=== PATIENT | male | born 1980 | race Caucasian/White ===

== ENCOUNTER 2019-06-08 09:21 | Emergency (ER) | payer OTHER, SELFPAY ==
[2019-06-08 09:28] VITALS: BP 121/80; PULSE 92; RESP 20; TEMP 37; O2SAT 98
--- NOTE | 2019-06-08 09:31 | ED.GENADUL_ITS ---
Discharge Plan Disposition Patient Disposition: HOME Condition: Improving Discharge Details Chief Complaint: Fever Clinical Impression: Fever, Tick bite Primary Care Provider: Pete Carrillo ED Provider: Namrata Allen Home Meds and New Rx's Prescriptions: New doxycycline hyclate 100 mg capsule 100 mg PO BID Qty: 41 RF: 0 ondansetron 4 mg tablet,disintegrating 4 mg PO Q6H PRN (Reason: nausea and vomiting) Qty: 10 RF: 0 Continued amitriptyline 50 MG tablet 50 mg PO HS RF: 0 omeprazole 20 MG capsule,delayed release(DR/EC) 20 mg PO DAILY RF: 0 Discharge Instructions Instructions: Tick Bite (ED), Fever in Adults (ED) Additional Instructions: Continue to encourage hydration. He may use Zofran as prescribed for nausea recurs. Please take the doxycycline as prescribed. I am concerned that you have a tickborne illness, particularly Lyme disease. Would like you to follow- up with your primary care this week for reevaluation. Please seek care urgently once again with any neck pain, rash, increased headache, fevers or other new/worsening symptoms. Stand Alone Forms: Work Release Referrals: Pete Carrillo [Primary Care Provider] - Discharge Data Discharge Date/Time-TO BE ENTERED AT DEPARTURE: 06/08/19 12:19 Medical Decision Making Patient is a 38-year-old female, coming by , with chief complaint of fever, body aches and general malaise. Reports that symptoms began 1 week ago. He was seen by his primary care 2 days ago at which time there was concern for influenza. Patient subsequent influenza swab which is negative. Patient was prescribed azithromycin but has not begun this, was not called into the pharmacy. Patient denies any sinus pain, ear pain, sore throat, cough. Endorses nausea and vomiting x1. No diarrhea, denies any dysuria. No abdominal pain. Denies any rash. Is endorsing a headache On exam, patient appears feels unwell. He is pale and appears fatigued. No nuchal rigidity. No rash. Lungs are clear. Normal exam otherwise. Labs significant for normal white count. ESR is elevated to 84. Sodium slightly low 134. AST 41, ALT 70. Patient denies any alcohol intake. CRP is 15.88. Albumin slightly low at 3.2. Urine is normal. Discussed this with the patient. On further questioning, patient was exposed to tick bite and his dog was recently diagnosed with Lyme disease. There is diffuse body aches, I am concerned that this may be a tickborne illness. There is no nuchal rigidity, does not appear toxic. Viral meningitis or encephalitis is on my differential, but feel that this is less likely. We did discuss LP and he decided to hold off at this time and instead begin empiric treatment for Lyme disease with doxycycline. I have asked that he follow-up with his primary care this week and strict return precautions was given. Discussed this plan in depth with the patient and his . He is feeling much improved after Zofran, fluids. Reports that his headache is already much improved. Encourage hydration. Will place on doxycycline x21 days. Advise follow-up with primary care this week. He will return with any new or worsening symptoms. All his questions and concerns were addressed and he is in agreement this plan. HPI General Mode of arrival: ambulatory . Date/Time Provider Initiated Documentation: 06/08/19 09:31 . Limitations to Documentation: no limitations . Information obtained by: patient, family () and RN notes reviewed . HPI Narrative: Patient is a 38-year-old male presents today with chief complaint feeling unwell. Generalized malaise, fever, headache, body aches. No URI symptoms. Symptoms began approximately 1 week ago. Is currently endorsing nausea. Vomited x1 this morning. Did not receive his influenza vaccine. No recent travel. No recent antibiotics. Related Data Home Medications Medication Instructions Recorded Confirmed amitriptyline 50 mg PO HS 03/31/17 06/08/19 omeprazole 20 mg PO DAILY 03/31/17 06/08/19 doxycycline hyclate 100 mg PO BID #41 cap 06/08/19 ondansetron 4 mg PO Q6H PRN #10 tab 06/08/19 Previous Rx's Medication Instructions Recorded doxycycline hyclate 100 mg PO BID #41 cap 06/08/19 ondansetron 4 mg PO Q6H PRN #10 tab 06/08/19 Allergies Allergy/AdvReac Type Severity Reaction Status Date / Time fish derived Allergy Other (See Unverified 07/12/17 10:05 Comment) General Stated Complaint: Fever DANETTE: 3 Review of Systems Constitutional Constitutional: Reports as per HPI, Reports chills, Reports fatigue, Reports fever(s), Reports headache(s), Reports malaise, Reports night sweats, Reports poor appetite, Reports weakness and Denies weight loss Eyes Eyes: Reports as per HPI, Denies eye discharge and Denies irritation ENT Ears, Nose, Mouth, and Throat: Reports as per HPI and Reports headache(s) Cardiovascular Cardiovascular: Reports as per HPI, Denies chest pain, Denies palpitations and Denies dyspnea Respiratory Respiratory: Reports as per HPI, Denies cough, Denies hemoptysis, Denies dyspnea, Denies stridor and Denies wheezing Gastrointestinal Gastrointestinal: Reports as per HPI, Denies abdominal pain, Denies change in bowel habits, Denies change in stool character, Denies constipation, Denies cramping, Reports nausea and Reports vomiting Genitourinary Genitourinary: Reports as per HPI, Denies genital pain, Denies dysuria, Denies flank pain, Denies testicular pain, Denies urinary frequency and Denies urinary urgency Integumentary/Breasts Skin/Breast: Reports as per HPI and Denies rash Neurologic Neurologic: Reports as per HPI, Reports headache(s) and Reports weakness Endocrine Endocrine: Reports fatigue and Denies palpitations Allergic/Immunologic Allergic/Immunologic: Denies wheezing [facility] Medical History Migraines (Chronic) Surgical History Hx of appendectomy (Chronic) Social History Smoking/Tobacco Use Status: Current every day Alcohol Intake: never Drug use: Occasionally Substance use type: marijuana Do you feel safe at home: Yes Do you feel safe in your relationship?: Yes Exam Const General: cooperative, comfortable, no acute distress, well developed, well groomed and ill appearing acutely (appears pale and fatigued, does not appear toxic) Nutritional Appearance: average body habitus and well nourished Orientation: alert and awake [facility] Head: normal to inspection, normocephalic and atraumatic Ears: hearing grossly normal bilaterally, external ears normal and TM's normal bilaterally General nose exam: external nose normal and nares normal Face and sinus: normal facial exam, sinuses nontender and face symmetric Mouth: oral mucosae normal, lip normal, tongue normal, oropharynx normal and moist mucous membranes Teeth and gingiva: dentition normal Throat: posterior oropharynx normal, tonsils normal and uvula midline Eyes General: appearance normal, both eyes and all related structures Neck Neck: normal visual inspection, full ROM, no lymphadenopathy and no meningeal signs Resp Effort & Inspection: normal respiratory effort, able to speak in complete sentences and no respiratory distress Auscultation: clear to auscultation bilaterally, no rales, no rhonchi and no wheezes Cardio Rate: regular rate Rhythm: regular rhythm Heart Sounds: S1 normal and S2 normal GI Inspection: normal to inspection, non-distended and no obesity Palpation: soft, no hepatosplenomegaly, no guarding, not rigid and nontender Percussion: normal to percussion Auscultation: normal bowel sounds Back/Spine/Pelvis Back: no CVA tenderness Thoracic/Lumbar Spine: thoracic and lumbar spine normal to inspection Skin General skin exam: no rashes or lesions noted Neuro General: alert and awake Cognition: normal cognition Speech: speech normal Gait: normal gait Extrem General: normal to inspection, no pedal edema, no calf tenderness and normal gait Psych Appearance: grossly normal and well kempt Mental Status: mental status grossly normal Speech and Movement: speech and movement normal Course Vital Signs Vital signs: Vital Signs Temperature 37.0 C 06/08/19 09:28 Pulse 92 H 06/08/19 09:28 Respiratory Rate 20 06/08/19 09:28 Blood Pressure 121/80 06/08/19 09:28 Pulse Oximetry 98 06/08/19 09:28 Temperature 37.0 C 06/08/19 09:28 Pulse 92 H 06/08/19 09:28 Respiratory Rate 20 06/08/19 09:28 Blood Pressure 121/80 06/08/19 09:28 Blood Pressure Position Sitting 06/08/19 09:28 Pulse Oximetry 98 06/08/19 09:28 Oxygen Delivery Method Room Air 06/08/19 09:28 Oxygen Flow Rate 0 06/08/19 09:28 Pain Level 9 06/08/19 09:28
[2019-06-08 10:10] LABS: Bilirubin Negative (Negative); Blood Trace-intact (Negative); Clarity Clear (Clear); Glucose Negative (Negative); Ketones Trace mg/dL (Negative); Leukocyte Esterase Negative (Negative); Nitrite Negative (Negative); Specific Gravity <= 1.005 (1.005-1.025); Urobilinogen 0.2 EU/dL (Up TO 0.2); pH 6.5 (5-8)
[2019-06-08] MEDS: Ondansetron O.D.T. 4 MG TABEF PO (10:12)
[2019-06-08 10:24] LABS: Bacteria Negative HPF (Negative); C & S Indicated? No; Casts Negative LPF (Negative); Crystals Negative HPF (Negative); Epithelial Cells Negative HPF (Negative); Mucus Trace (Negative); RBC 0-2 HPF (0-2); WBC 0-2 HPF (0-5)
[2019-06-08] MEDS: Normal Saline 1,000 ML 1000 ML IV (10:35)
[2019-06-08 10:43] LABS: Abs Immature Grans 0.01 k/cumm (0.0-0.09); Absolute Basophil Count 0.02 k/cumm (0.0-0.2); Absolute Lymphocyte Count 1.23 k/cumm (1.2-3.4); Absolute Neutrophil Count 4.82 k/cumm (1.2-6.7); Basophils % 0.3; HCT 39.5 % (40.0-50.0); HGB 13.7 g/dL (13.5-17.5); Immature Grans % 0.1; Lymphocytes % 18.4; Mean Corp. HGB Concentration 34.7 g/dL (32.0-36.0); Mean Corpuscular Hemoglobin 31.6 pg (27.0-33.0); Mean Corpuscular Volume 91.2 fL (80-95); Mean Platelet Volume 8.7 fL (8.0-11.0); Neutrophils % 72.2; Platelet Count 219 x1000/uL (130-400); RBC 4.33 m/cumm (4.50-6.00); RBC Distribution Width 12.3 % (11.8-14.1); White Blood Cell Count 6.68 k/cumm (4.4-10.8)
[2019-06-08 10:57] LABS: C-Reactive Protein 15.88 mg/dL (0.0-0.3)
[2019-06-08 10:59] LABS: ALT 70 U/L (16-63); AST 41 U/L (15-37); Albumin 3.2 g/dL (3.4-5.0); Alkaline Phosphatase 93 U/L (46-116); Anion Gap 7.4 mmol/L (3-11); BUN 6 mg/dL (7-18); Bilirubin, Total 0.4 mg/dL (0.2-1.0); CO2 27.6 mmol/L (21.0-32.0); CREATININE 0.91 mg/dL (0.70-1.30); Calcium 8.9 mg/dL (8.5-10.1); Chloride 99 mmol/L (98-107); Glucose 100 mg/dL (70-100); Potassium 4.1 mmol/L (3.5-5.1); Sodium 134 mmol/L (136-145); Total Protein 7.8 g/dL (6.4-8.2)
[2019-06-08] MEDS: Lactated Ringers 1,000 ML 1000 ML IV (11:03)
[2019-06-08 11:20] LABS: ESR 84 mm/hr (0-15)
[2019-06-08] MEDS: Acetaminophen 500 MG TAB 1000 MG PO (11:50)
[2019-06-08] MEDS: Ibuprofen 600 MG TAB PO (11:50)
[2019-06-08 11:55] VITALS: BP 116/76; PULSE 86; RESP 15; TEMP 36.6; O2SAT 96
[2019-06-08 12:12] VITALS: BP 116/72; PULSE 83; RESP 12; TEMP 36.6; O2SAT 95
[2019-06-08] MEDS: Doxycycline Hyclate 100 MG CAP PO (12:12)
[2019-06-10 11:43] LABS: Lyme Ab w Rflx to Lyme Confirm Negative (Negative)
[2019-06-11 17:31] LABS: Anaplasma phagocytophilum Negative (Negative); B. miyamotoi PCR Negative (Negative); Babesia divergens/MO-1 Negative (Negative); Babesia duncani Negative (Negative); Babesia microti Negative (Negative); Ehrlichia chaffeensis Negative (Negative); Ehrlichia ewingii/canis Negative (Negative); Ehrlichia muris eauclairensis Negative (Negative)
== END 2019-06-08 12:19 | disposition home or self-care (01) ==
PROVIDERS: Emergency Provider Physician Assistant; PCP Family Medicine
DX: R50.9 Fever, unspecified (principal); Z11.2 Encounter for screening for other bacterial diseases; W57.XXXA Bitten or stung by nonvenomous insect and other nonvenomous arthropods, initial encounter
CPT/HCPCS: 36415; 80053; 85652; 87449; 87631; 87798; 96360; 99283; 81003; 81015; 85025; 86140; 86618

== ENCOUNTER 2019-06-23 19:12 | Outpatient (REF) | payer OTHER, SELFPAY ==
[2019-06-23 19:54] LABS: ALT 33 U/L (16-63); AST 13 U/L (15-37); Alkaline Phosphatase 76 U/L (46-116); Bilirubin, Direct 0.07 mg/dL (0.00-0.20); Bilirubin, Total 0.3 mg/dL (0.2-1.0); C-Reactive Protein 0.26 mg/dL (0.0-0.3); Total Protein 7.7 g/dL (6.4-8.2)
[2019-06-25 11:49] LABS: Lyme Ab w Rflx to Lyme Confirm Negative (Negative)
[2019-06-26 19:59] LABS: Anaplasma phagocytophilum Negative (Negative); B. miyamotoi PCR Negative (Negative); Babesia divergens/MO-1 Negative (Negative); Babesia duncani Negative (Negative); Babesia microti Negative (Negative); Ehrlichia chaffeensis Negative (Negative); Ehrlichia ewingii/canis Negative (Negative); Ehrlichia muris eauclairensis Negative (Negative)
== END 2019-06-23 19:32 ==
LOC: NCHCN 19:12
PROVIDERS: PCP Family Medicine; Visit Provider Family Medicine
DX: R50.9 Fever, unspecified (principal); R53.83 Other fatigue; R74.0 Nonspecific elevation of levels of transaminase and lactic acid dehydrogenase [LDH]
CPT/HCPCS: 80076; 87798; 84443; 86140; 86618

== ENCOUNTER 2020-01-21 13:21 | Emergency (ER) | payer OTHER, SELFPAY ==
[2020-01-21 13:24] VITALS: BP 126/83; PULSE 84; RESP 16; TEMP 36.6; O2SAT 99
[2020-01-21 13:28] VITALS: RESP 16
--- NOTE | 2020-01-21 13:45 | DI.CT_ITS ---
EXAM: CT CHEST PE CTA CLINICAL HISTORY: R/O PE vs Aneurysm. TECHNIQUE: Imaging Protocol: Axial CT angiography was performed with multi-slice acquisition and mu lti-planar and/or 3D reconstructions. CONTRAST MATERIAL: Intravenous: Omnipaque 350 Contrast volume:99 mL COMPARISON: No exams were available for comparison FINDINGS: Pulmonary Arteries: No evidence of filling defect to suggest pulmonary emboli. Tracheobronchial tree: Patent where visualized. Mediastinum and Shahida: No dominant adenopathy or fluid collection. Pulmonary parenchyma: No consolidation or dominant measurable mass. No architectural distortion. Pleura: No effusion or pneumothorax. Heart: The heart is not dilated. No coronary artery calcifications are seen. No pericardial effusion or evidence of right heart strain. Aorta: Thoracic aorta non-dilated. Dissection. Upper abdomen: Unremarkable. Bones: Degenerative changes are seen in the thoracic spine. No acute abnormality. IMPRESSION: No evidence of pulmonary embolism, thoracic aortic dissection or aneurysm. These findings were discussed with the emergency department on the date of the examination. RADIATION DOSE DELIVERED: Total DLP DATA REPOSITORY: All CT scans at this facility are submitted to the National Radiology Data Registry (NRDR) Dose Index Registry (DIR) with the [employer] (A[employer]). RADIATION OPTIMIZATION: All CT scans at this facility use at least one of these dose optimization te chniques: automated exposure control; mA and/or kV adjustment per patient size (includes targeted exa ms where dose is matched to clinical indication); or iterative reconstruction.
[2020-01-21 13:47] LABS: Abs Immature Grans 0.02 k/cumm (0.0-0.09); Absolute Basophil Count 0.01 k/cumm (0.0-0.2); Absolute Monocyte Count 0.86 k/cumm (0.11-0.7); Absolute Neutrophil Count 6.35 k/cumm (1.2-6.7); Basophils % 0.1; HGB 14.9 g/dL (13.5-17.5); Immature Grans % 0.2 %; Lymphocytes % 23.1; Mean Corp. HGB Concentration 34.7 g/dL (32.0-36.0); Mean Corpuscular Hemoglobin 32.7 pg (27.0-33.0); Mean Corpuscular Volume 94.5 fL (80-95); Neutrophils % 66.6; Platelet Count 293 x1000/uL (130-400); RBC 4.55 m/cumm (4.50-6.00); RBC Distribution Width 12.7 % (11.8-14.1); White Blood Cell Count 9.54 k/cumm (4.4-10.8)
--- NOTE | 2020-01-21 13:52 | ED.GENADUL_ITS ---
Discharge Plan Disposition Patient Disposition: HOME Condition: Stable Discharge Details Chief Complaint: Chest Pain Clinical Impression: Chest pain Primary Care Provider: Pete Carrillo ED Provider: Aris Navarro Home Meds and New Rx's Prescriptions: Continued amitriptyline 50 MG tablet 50 mg PO HS RF: 0 omeprazole 20 MG capsule,delayed release(DR/EC) 20 mg PO DAILY RF: 0 Discharge Instructions Instructions: Chest Pain (ED) Additional Instructions: Work-up in the ER has been unremarkable, your pain is now less than a 1 out of 1 0. [id number] anti-inflammatory medication as directed. Please watch for new or worsening symptoms and return to the ER for any concerns. I do recommend reaching out to your primary care provider tomorrow for reevaluation in the next 3-5 days. As we discussed outpatient referral to cardiology for outpatient cardiac work-up and/or general surgery for potential endoscopy may be indicated if symptoms persist. Discharge Data Discharge Date/Time-TO BE ENTERED AT DEPARTURE: 01/21/20 17:33 Medical Decision Making <Aaliyah Camilo - Last Filed: 01/22/20 10:31> 39-year-old male presents to the ED chief complaint upper back pain which then turned into midsternal anterior chest pain which began at 2:00 in the morning radiating into his left arm. Associated with pain with deep breathing. Patient is a smoker. Patient does endorse daily marijuana use. Denies productive cough, no swelling in his lower extremities, denies nausea or vomiting, fever or chills, hematochezia. Denies alcohol use. Upon arrival he does rate his pain 5 out of 10. Pain is not reproducible with palpation. 1328: EKG was reviewed by Eneida Kennedy MD ER attending, shows normal sinus rhythm rate of [address] elevation which could represent repolarization variant in leads V2 and V3, no ectopy no STEMI. There is no old EKG available for review at this time. Cardiac work-up ordered including CBC, CMP, troponin serial troponin at 3 hours, cardiac monitoring, CT PE CTA to rule out PE versus aneurysm. At this time PE is less likely, no tachycardia, no hemoptysis, no lower extremity swelling. Differential diagnosis includes but not limited to angina, AAA, PE, costochondritis, URI, pneumonia, musculoskeletal. EXAM: CT CHEST PE CTA CLINICAL HISTORY: R/O PE vs Aneurysm. TECHNIQUE: Imaging Protocol: Axial CT angiography was performed with multi- slice acquisition and multi-planar and/or 3D reconstructions. CONTRAST MATERIAL: Intravenous: Omnipaque 350 Contrast volume:99 mL COMPARISON: No exams were available for comparison FINDINGS: Pulmonary Arteries: No evidence of filling defect to suggest pulmonary emboli. Tracheobronchial tree: Patent where visualized. Mediastinum and Shahida: No dominant adenopathy or fluid collection. Pulmonary parenchyma: No consolidation or dominant measurable mass. No architectural distortion. Pleura: No effusion or pneumothorax. Heart: The heart is not dilated. No coronary artery calcifications are seen. No pericardial effusion or evidence of right heart strain. Aorta: Thoracic aorta non-dilated. Dissection. Upper abdomen: Unremarkable. Bones: Degenerative changes are seen in the thoracic spine. No acute abnormal ity. IMPRESSION: No evidence of pulmonary embolism, thoracic aortic dissection or aneurysm. These findings were discussed with the emergency department on the date of the examination. 1530: Patient returned from CT reports increased pain with laying flat, pain got worse with raising arms over the head and laying flat. Reports pain 9 out of 10. Sublingual nitroglycerin x3 ordered as needed pain. 1549: medical staff coordinator reports no change in patient's pain after 3 sublingual nitros. 15 mg Toradol IV push ordered. At this time repeat troponin and repeat EKG is pending. Care is to be handed off to oncoming provider KIM Woods pending second repeat troponin and EKG and patient disposition. Discussed patient details in case with Aris. <KIM Broussard - Last Filed: 01/21/20 17:31> This 39-year-old gentleman was signed out to me by GUALBERTO Camilo at shift change at 1600. He developed back and chest pain late last night early this morning. Work-up thus far has been unremarkable including troponin, EKG, chest CT. He was given 3 nitro without any resolution of his symptoms. Just prior to my shift starting he was given Toradol. His pain earlier in his visit was a 5 out of 10. Upon my evaluation in room 8, he reports his pain is significantly improved with Toradol, now barely a 1 out of 10. He denies any shortness of breath. He appears well, nontoxic and in no acute distress. Head normocephalic, heart regular rate and rhythm, rate in the 70s. Lungs clear to auscultation, speaking in full sentences. O2 sat 100% on room air. Abdomen soft, nontender. No pedal edema. Patient is agreeable to awaiting his repeat EKG and troponin. Repeat troponin is less than 0.05. Repeat EKG performed at 1630 reviewed and interpreted with Dr. Kennedy. Sinus rhythm, ventricular rate of 69. Early repolarization, no STEMI. No dynamic changes when compared to earlier EKG. Upon my final evaluation, patient is resting comfortably and reports his pain is not even a true pain any longer and more of what he describes as a irritation. Irritation is less than 1 out of 10. Patient has no additional questions or concerns and is comfortable discharge at this time. He will use [id number] anti-inflammatory medication as directed, recheck to his primary care provider tomorrow for prompt outpatient reevaluation, and return to the ER for new or worsening symptoms. Lab Data Lab results reviewed: Yes I reviewed the patient's lab results. Labs: Laboratory Tests Range/Units 01/21/20 01/21/20 01/21/20 13:40 13:40 13:40 WBC (4.4-10.8) k/cumm 9.54 RBC (4.50-6.00) m/cumm 4.55 Hgb (13.5-17.5) g/dL 14.9 Hct (40.0-50.0) % 43.0 MCV (80-95) fL 94.5 MCH (27.0-33.0) pg 32.7 MCHC (32.0-36.0) g/dL 34.7 RDW (11.8-14.1) % 12.7 Plt Count (130-400) x1000/uL 293 MPV (8.0-11.0) fL 9.0 Immature Gran % % 0.2 Neutrophils % 66.6 Lymphocytes % 23.1 Monocytes % 9.0 Eosinophils % 1.0 Basophils % 0.1 Absolute Neutrophils (1.2-6.7) k/cumm 6.35 Absolute Lymphocytes (1.2-3.4) k/cumm 2.20 Absolute Monocytes (0.11-0.7) k/cumm 0.86 H Absolute Eosinophils (0.0-0.7) k/cumm 0.10 Absolute Basophils (0.0-0.2) k/cumm 0.01 Sodium (136-145) mmol/L 139 Potassium (3.5-5.1) mmol/L 3.5 Chloride (98-107) mmol/L 102 Carbon Dioxide (21.0-32.0) mmol/L 28.2 Anion Gap (3-11) mmol/L 8.8 BUN (7-18) mg/dL 8 Creatinine (0.70-1.30) mg/dL 1.14 Estimated GFR/1.73 m2 (mL/min/1.73m2) >= 60.00 Glucose (74-106) mg/dL 129 H Calcium (8.5-10.1) mg/dL 9.2 Magnesium (1.8-2.4) mg/dL 2.1 Total Bilirubin (0.2-1.0) mg/dL 0.9 AST (15-37) U/L 20 ALT (16-63) U/L 42 Alkaline Phosphatase (46-116) U/L 82 Troponin I (<0.06) ng/mL < 0.05 Total Protein (6.4-8.2) g/dL 7.8 Albumin (3.4-5.0) g/dL 4.1 Range/Units 01/21/20 16:36 WBC (4.4-10.8) k/cumm RBC (4.50-6.00) m/cumm Hgb (13.5-17.5) g/dL Hct (40.0-50.0) % MCV (80-95) fL MCH (27.0-33.0) pg MCHC (32.0-36.0) g/dL RDW (11.8-14.1) % Plt Count (130-400) x1000/uL MPV (8.0-11.0) fL Immature Gran % % Neutrophils % Lymphocytes % Monocytes % Eosinophils % Basophils % Absolute Neutrophils (1.2-6.7) k/cumm Absolute Lymphocytes (1.2-3.4) k/cumm Absolute Monocytes (0.11-0.7) k/cumm Absolute Eosinophils (0.0-0.7) k/cumm Absolute Basophils (0.0-0.2) k/cumm Sodium (136-145) mmol/L Potassium (3.5-5.1) mmol/L Chloride (98-107) mmol/L Carbon Dioxide (21.0-32.0) mmol/L Anion Gap (3-11) mmol/L BUN (7-18) mg/dL Creatinine (0.70-1.30) mg/dL Estimated GFR/1.73 m2 (mL/min/1.73m2) Glucose (74-106) mg/dL Calcium (8.5-10.1) mg/dL Magnesium (1.8-2.4) mg/dL Total Bilirubin (0.2-1.0) mg/dL AST (15-37) U/L ALT (16-63) U/L Alkaline Phosphatase (46-116) U/L Troponin I (<0.06) ng/mL < 0.05 Total Protein (6.4-8.2) g/dL Albumin (3.4-5.0) g/dL HPI <Aaliyah Camilo - Ziggy Filed: 01/22/20 10:31> General Mode of arrival: ambulatory . Date/Time Provider Initiated Documentation: 01/21/20 13:35 . Limitations to Documentation: no limitations . Information obtained by: patient . HPI Narrative: 39-year-old male presents to the ED chief complaint upper back pain which then turned into midsternal anterior chest pain which began at 2:00 in the morning radiating into his left arm. Associated with pain with deep breathing. Patient is a smoker. Patient does endorse daily marijuana use. Denies productive cough, no swelling in his lower extremities, denies nausea or vomiting, fever or chills, hematochezia. Denies alcohol use. Upon arrival he does rate his pain 5 out of 10. Pain is not reproducible with palpation. Related Data Home Medications Medication Instructions Recorded Confirmed amitriptyline 50 mg PO HS 03/31/17 01/21/20 omeprazole 20 mg PO DAILY 03/31/17 01/21/20 Allergies Allergy/AdvReac Type Severity Reaction Status Date / Time fish derived Allergy Other (See Unverified 01/21/20 13:32 Comment) sumatriptan AdvReac Intermediate Unverified 01/21/20 15:37 General Stated Complaint: Chest Pain DANETTE: 2 Review of Systems <Aaliyah Camilo - Ziggy Filed: 01/22/20 10:31> Narrative: Constitutional: Negative for weight loss, alert and oriented, well groomed, normal body habitus, appears comfortable. HEENT: Denies trauma, headaches, blurry vision, nasal discharge, sore throat, trouble swallowing. Chest: Denies palpitations, irregular rhythm, hypertension. Positive midsternal chest pain and upper back pain which woke him out of sleep at 2 in the morning. Respiratory: Denies Shortness of breath, cough, hemoptysis. GI: Denies abdominal pain, nausea, vomiting, diarrhea, constipation. : Denies dysuria, hematuria, flank pain, rectal bleeding. Neuro: Denies dizziness, blurry vision, weakness, syncope, headache or facial numbness. Hematologic: Denies easy bruising, intolerance to heat or cold, hair loss. PFSH <Aaliyah Camilo - Last Filed: 01/22/20 10:31> Medical History Migraines (Chronic) Surgical History Hx of appendectomy (Chronic) Social History Smoking/Tobacco Use Status: Current every day Tobacco Type: cigarettes Years smoked: 19 Alcohol Intake: never Drug use: Occasionally Substance use type: marijuana Do you feel safe at home: Yes Do you feel safe in your relationship?: Yes Exam <Aaliyah Camilo - Last Filed: 01/22/20 10:31> Narrative Exam Narrative: Constitutional: Alert and oriented x3. Appears stated age. Normal body habitus. Head: Normocephalic, no trauma. Eyes: Pupils PERRLA, Red reflex noted, EOM's intact. Eyelids symmetrical without lesions, discharge, or swelling. ENT: Bilateral TM's WNL, External ear normal to inspection, no mastoid TTP, swelling, or erythema, Nasal turbinates WNL, no nasal discharge. Normal dentition, Posterior pharynx WNL, no exudate. Chest: RRR, Normal S1, S2, no murmur rubs or gallops auscultated, distal pulses intact. Chest pain nonreproducible to palpation. Resp: Lungs clear to auscultation bilaterally, no wheezes, rales, or rhonchi. Musculoskeletal: Normal gait, 5/5 strength to all four extremities. Skin: No suspicious rashes or lesions. Capillary refill less than 2 sec. Neurologic: Cranial nerves II-XII intact. Alert and oriented x 3. DTR's intact. Hematologic/Lymphatic: No ecchymosis, no lymphadenopathy. Course <Aaliyah Camilo - Last Filed: 01/22/20 10:31> Vital Signs Vital signs: Vital Signs Temperature 36.6 C 01/21/20 13:24 Pulse 84 01/21/20 13:24 Respiratory Rate 16 01/21/20 13:24 Blood Pressure 126/83 01/21/20 13:24 Pulse Oximetry 99 01/21/20 13:24 Temperature 36.6 C 01/21/20 13:24 Temperature Source Tympanic 01/21/20 13:24 Pulse 84 01/21/20 13:24 Respiratory Rate 16 01/21/20 13:28 Respiratory Effort Short of Breath 01/21/20 13:28 Respiratory Depth Normal 01/21/20 13:28 Respiratory Pattern Normal 01/21/20 13:28 Blood Pressure 126/83 01/21/20 13:24 Blood Pressure Position Sitting 01/21/20 13:24 Pulse Oximetry 99 01/21/20 13:24 Oxygen Delivery Method Room Air 01/21/20 13:24 Oxygen Flow Rate 0 01/21/20 13:24 Pain Level 8 01/21/20 13:28 Lab/Test Results Lab/Test Results: Laboratory Tests Range/Units 01/21/20 13:40 WBC (4.4-10.8) k/cumm 9.54 RBC (4.50-6.00) m/cumm 4.55 Hgb (13.5-17.5) g/dL 14.9 Hct (40.0-50.0) % 43.0 MCV (80-95) fL 94.5 MCH (27.0-33.0) pg 32.7 MCHC (32.0-36.0) g/dL 34.7 RDW (11.8-14.1) % 12.7 Plt Count (130-400) x1000/uL 293 MPV (8.0-11.0) fL 9.0 Immature Gran % % 0.2 Neutrophils % 66.6 Lymphocytes % 23.1 Monocytes % 9.0 Eosinophils % 1.0 Basophils % 0.1 Absolute Neutrophils (1.2-6.7) k/cumm 6.35 Absolute Lymphocytes (1.2-3.4) k/cumm 2.20 Absolute Monocytes (0.11-0.7) k/cumm 0.86 H Absolute Eosinophils (0.0-0.7) k/cumm 0.10 Absolute Basophils (0.0-0.2) k/cumm 0.01 Sign Out <Aaliyah Camilo - Last Filed: 01/22/20 10:31> Sign Out Data: Sign Out Comment: Pending Repeat Troponin and EKG, expected disposition is discharge. Last updated by Aaliyah Camilo at 01/21/20 15:52
[2020-01-21 14:08] LABS: ALT 42 U/L (16-63); AST 20 U/L (15-37); Albumin 4.1 g/dL (3.4-5.0); Alkaline Phosphatase 82 U/L (46-116); Anion Gap 8.8 mmol/L (3-11); BUN 8 mg/dL (7-18); Bilirubin, Total 0.9 mg/dL (0.2-1.0); CO2 28.2 mmol/L (21.0-32.0); CREATININE 1.14 mg/dL (0.70-1.30); Calcium 9.2 mg/dL (8.5-10.1); Chloride 102 mmol/L (98-107); Glucose 129 mg/dL (74-106); Potassium 3.5 mmol/L (3.5-5.1); Sodium 139 mmol/L (136-145); Total Protein 7.8 g/dL (6.4-8.2); Troponin I < 0.05 ng/mL (<0.06)
[2020-01-21 14:41] LABS: Magnesium 2.1 mg/dL (1.8-2.4)
[2020-01-21 15:04] VITALS: BP 122/90; PULSE 77; RESP 18; TEMP 36.5; O2SAT 98
[2020-01-21] MEDS: Omnipaque 350 MG/ML 100 ML BTL IV (15:08)
[2020-01-21 15:30] VITALS: BP 124/89; PULSE 72
[2020-01-21 15:34] VITALS: BP 117/84; PULSE 77; O2SAT 96
[2020-01-21] MEDS: Ketorolac 15 MG/ML VIAL IVP (15:54)
[2020-01-21 16:52] VITALS: BP 116/78; PULSE 77; RESP 18; TEMP 36.4; O2SAT 100
[2020-01-21 17:19] LABS: Troponin I < 0.05 ng/mL (<0.06)
== END 2020-01-21 17:33 | disposition home or self-care (01) ==
PROVIDERS: Registered Nurse Emergency; Emergency Provider Physician Assistant; PCP Family Medicine
DX: R07.9 Chest pain, unspecified (principal); M54.6 Pain in thoracic spine; F17.210 Nicotine dependence, cigarettes, uncomplicated
CPT/HCPCS: 36415; 71275; 80053; 93005; 96374; 99285; 83735; 84484; 85025; 93010; 99284; J1885; J3490

== ENCOUNTER 2020-01-27 21:50 | Outpatient (REF) | payer OTHER, SELFPAY ==
[2020-01-27 18:54] LABS: TSH (W/Ref FT4) 1.33 uIU/mL (0.36-3.74)
== END 2020-01-27 22:10 ==
LOC: NCHCN 21:50
PROVIDERS: PCP Family Medicine; Visit Provider Family Medicine
DX: R53.81 Other malaise (principal); R53.83 Other fatigue
CPT/HCPCS: 85652; 84443

== ENCOUNTER 2020-02-10 22:11 | Outpatient (REF) | payer OTHER, SELFPAY ==
[2020-02-10 19:55] LABS: ESR 10 mm/hr (0-15)
== END 2020-02-10 22:31 ==
LOC: NCHCN 22:11
PROVIDERS: PCP Family Medicine; Visit Provider Family Medicine
DX: R53.81 Other malaise (principal)
CPT/HCPCS: 85652

== ENCOUNTER 2021-08-08 18:32 | Outpatient (REF) | payer OTHER, SELFPAY ==
[2021-08-10 16:11] LABS: COVID-19 RT-PCR UVMMC Result Negative (Negative)
== END 2021-08-08 18:33 | disposition home or self-care (01) ==
LOC: NCHCN 18:32
PROVIDERS: PCP Family Medicine; Visit Provider Family Medicine
DX: Z20.822 Contact with and (suspected) exposure to COVID-19 (principal)
CPT/HCPCS: U0003

== ENCOUNTER 2022-03-10 18:07 | Outpatient (REF) | payer OTHER, SELFPAY ==
[2022-03-12 12:35] LABS: COVID-19 RT-PCR UVMMC Result Negative (Negative)
== END 2022-03-10 18:08 | disposition home or self-care (01) ==
LOC: LBN 18:07
PROVIDERS: PCP Family Medicine; Visit Provider Physician Assistant Medical
DX: Z20.822 Contact with and (suspected) exposure to COVID-19 (principal); R50.9 Fever, unspecified
CPT/HCPCS: U0003

== ENCOUNTER → 2022-03-14 12:27 | Outpatient (CLI) | payer OTHER, SELFPAY ==
--- NOTE | 2022-03-14 | DI.RAD_ITS ---
Exam(s) XR CHEST 2V PA LATERAL EXAM: XR CHEST 2V PA LATERAL CLINICAL HISTORY: COUGH--R05.8, WHEEZING--R06.2, FEVER--R50.9 TECHNIQUE: 2D digital imaging was performed. COMPARISON: CR RIGHT SHOULDER COMPLETE from 03/31/2017 FINDINGS: The heart is not enlarged. The lungs are clear and well expanded. No pleural effusion seen. Mediastin al contours appear intact. IMPRESSION: Normal chest. RADIATION DOSE DELIVERED: Total DLP
== END ==
PROVIDERS: PCP Family Medicine; Visit Provider Nurse Practitioner Family
DX: R05.8 Other specified cough (principal); R06.2 Wheezing; R50.9 Fever, unspecified
CPT/HCPCS: 71046

== ENCOUNTER 2022-09-01 12:13 | Outpatient (CLI) | payer OTHER, SELFPAY ==
[2022-09-01] MEDS: Barium Sulfate 2% W/V-Berry Smoothie 450 ML BTL 900 ML PO (12:43)
[2022-09-01] MEDS: Normal Saline - Diluent 50 ML VIAL IJ (14:37)
[2022-09-01] MEDS: Omnipaque 350 MG/ML 100 ML BTL IJ (14:38)
--- NOTE | 2022-09-01 14:43 | DI.CT_ITS ---
Exam(s) CT ABDOMEN PELVIS W EXAM: CT ABDOMEN PELVIS W CLINICAL HISTORY: abdominal pain suprapubic and LLQ, R10.9 TECHNIQUE: Imaging Protocol: Axial computed tomography images with coronal and sagittal reformatted images were created and reviewed CONTRAST MATERIAL: Intravenous: Omnipaque 350 Contrast volume:100 mL Oral: Yes COMPARISON: CT CT CHEST PE CTA from 01/21/2020 FINDINGS: ABDOMEN: Lung Bases: Normal where visualized. Liver: Normal density. There are 2 tiny densities seen in the liver. They are too small for further characterization but likely reflect small cysts. No suspicious hepatic masses are seen. Portal, Superior Mesenteric, and Splenic Veins: Unremarkable. Gallbladder and Biliary Tract: No radiodense calculus or dilation. Pancreas: Normal density, no abnormal calcifications or inflammatory process. Spleen: Normal. Adrenals: No masses seen. Kidneys: Normal size, contour and axis. No radiodense stones or obstructive uropathy. No masses seen. Abdominal Aorta: Abdominal portion non-dilated. Bowel: There are diverticula seen in the sigmoid colon. There is bowel wall thickening seen in the m id sigmoid colon with pericolonic inflammatory stranding consistent with acute diverticulitis. The p atient appears to be status post appendectomy. There is no evidence of bowel obstruction. Peritoneal Cavity: No ascites, collection or mesenteric inflammatory response. No free air. Lymph Nodes: Within normal limits. Bones: Within normal limits for the patient's age. Soft Tissues: There is a small fat containing umbilical hernia. PELVIS: Bladder: Symmetric distention, no gross wall thickening. Reproductive Organs: Unremarkable as visualized. Lymph Nodes: Within normal limits. Bones: Within normal limits for the patient's age. IMPRESSION: Findings consistent with acute diverticulitis involving the sigmoid colon. No abscess or free air. RADIATION DOSE DELIVERED: 690.27mGy.cm Total DLP DATA REPOSITORY: All CT scans at this facility are submitted to the National Radiology Data Registry (NRDR) Dose Index Registry (DIR) with the [employer] ([employer]). RADIATION OPTIMIZATION: All CT scans at this facility use at least one of these dose optimization te chniques: automated exposure control; mA and/or kV adjustment per patient size (includes targeted exa ms where dose is matched to clinical indication); or iterative reconstruction.
[2022-09-01 15:29] LABS: Abs Immature Grans 0.01 10^3/uL (0.0-0.06); Absolute Basophil Count 0.03 10^3/uL (0.0-0.2); Absolute Eosinophil Count 0.14 10^3/uL (0.0-0.7); Absolute Lymphocyte Count 3.08 10^3/uL (1.2-3.4); Absolute Monocyte Count 0.78 10^3/uL (0.1-0.8); Absolute Neutrophil Count 4.32 10^3/uL (1.2-6.7); Basophils % 0.4; Eosinophils % 1.7; HCT 42.8 % (40.0-50.0); HGB 14.3 g/dL (13.5-17.5); Immature Grans % 0.1; Lymphocytes % 36.8; MCH 31.5 pg (27.0-33.0); MCHC 33.4 % (32.0-36.0); MCV 94 fL (80-95); MPV 9.1 fL (8.0-11.0); Monocytes % 9.3; Neutrophils % 51.7; Platelet Count 279 10^3/uL (130-400); RBC 4.54 10^6/uL (4.36-5.78); RDW 12.5 % (11.8-14.1); RDW-SD 43.8 fL; WBC 8.36 10^3/uL (4.4-10.8)
[2022-09-01 15:45] LABS: ALT 15 U/L (16-63); AST 14 U/L (15-37); Albumin 3.7 g/dL (3.4-5.0); Alkaline Phosphatase 83 U/L (46-116); Anion Gap 6.3 mmol/L (3-11); BUN 6 mg/dL (7-18); Bilirubin, Total 1.3 mg/dL (0.2-1.0); CO2 31.7 mmol/L (21.0-32.0); CREATININE 0.9 mg/dL (0.70-1.30); Chloride 100 mmol/L (98-107); Estimated GFR 108.01 (mL/min/1.73m2); Glucose 88 mg/dL (74-106); Potassium 4.2 mmol/L (3.5-5.1); Sodium 138 mmol/L (136-145); Total Protein 7.5 g/dL (6.4-8.2)
== END 2022-09-01 12:33 ==
LOC: DI 12:24
PROVIDERS: PCP Family Medicine; Visit Provider Physician Assistant
DX: K57.32 Diverticulitis of large intestine without perforation or abscess without bleeding (principal)
CPT/HCPCS: 80053; 74177; 85025; J3490

== ENCOUNTER 2022-09-01 15:13 | Outpatient (REF) | payer OTHER, SELFPAY | END 2022-09-01 15:14 | disposition home or self-care (01) | LOC: LBN 15:13 | PROVIDERS: PCP Family Medicine; Visit Provider Physician Assistant | DX: N39.0 Urinary tract infection, site not specified (principal) | CPT/HCPCS: 87086 ==

== ENCOUNTER 2022-09-06 16:10 | Outpatient (REF) | payer OTHER, SELFPAY ==
[2022-09-06 19:56] LABS: Calculated LDL 145 mg/dL (<100); Cholesterol 227 mg/dL (<200); HDL Cholesterol 46 mg/dL (40-60); TSH (W/Ref FT4) 2.05 uIU/mL (0.36-3.74); Triglyceride 181 mg/dL (<150)
[2022-09-08 10:05] LABS: Hepatitis C Ab w Rflx HCV PCR Negative (Negative)
== END 2022-09-06 16:11 | disposition home or self-care (01) ==
LOC: NCHCN 16:10
PROVIDERS: PCP Family Medicine; Visit Provider Family Medicine
DX: E78.5 Hyperlipidemia, unspecified (principal); R63.4 Abnormal weight loss; F32.89 Other specified depressive episodes; Z00.00 Encounter for general adult medical examination without abnormal findings; Z11.59 Encounter for screening for other viral diseases
CPT/HCPCS: 80061; 86803; 84443